=== PATIENT | male | born 1965 | race African-American/Black ===

== ENCOUNTER 2016-11-03 18:46 | Inpatient (IN) | payer MEDICAID ==
[~2016-11-03] VITALS: Ht 193 cm; Wt 104.8 kg
[~2016-11-03 18:46] MED LIST: ALBU18HF2 IH; ASPI-1159 PO; ATOR20TA PO; AZIT500T5 PO; CARV25TA47 PO; CLOP75TA33 PO; FLUT1DIS INH; FURO20TA4 PO; LISI10TA5 PO; MECL-109 PO; METO-396 PO; METR500T4 PO; NO HOME MEDS; PENI500T PO; SPIR25TA4 PO
[2016-11-03] MEDS ORDERED: ONDANSETRON HCL 4MG/2ML VIAL IV STA (19:49)
[2016-11-03] MEDS ORDERED: SODIUM CHLORIDE 0.9% 1,000 ML IV ONE (19:49)
[2016-11-03] MEDS ORDERED: MORPHINE SULFATE 4 MG/ML CPJ (NOT FOR IM USE) IV STA (19:49)
[2016-11-03] MEDS ORDERED: ONDANSETRON HCL 4MG/2ML VIAL IV ONE (20:00)
[2016-11-03 20:30] LABS: BASOPHILS % 0.7 % (0.0-2.0); EOSINOPHILS % 1.2 % (0.0-5.0); HEMATOCRIT. 40.6 % (42.0-52.0); HEMOGLOBIN. 12.7 g/dL (14.0-18.0); LYMPHOCYTES % 17.6 % (20.0-50.0); MEAN CORPUSCULAR HEMOGLOBIN 24.2 pg (28.0-32.0); MEAN CORPUSCULAR VOLUME 77.1 fL (80.0-94.0); MEAN PLATELET VOLUME 9.1 fl (7.4-10.4); MONOCYTES % 7.7 % (2.0-8.0); NEUTROPHILS % 72.8 % (40.0-76.0); PLATELET 190 x1000/uL (130-400); RED BLOOD CELL COUNT 5.26 mill/uL (4.7-6.1); RED CELL DISTRIBUTION WIDTH 21.4 % (11.6-14.6)
[2016-11-03 20:37] LABS: CARBON DIOXIDE 26 mEq/L (21-32); CHLORIDE 109 mEq/L (98-107); INR 1.3; PARTIAL THROMBOPLASTIN TIME 24.6 sec (24.0-34.0); PROTHROMBIN TIME 13.5 sec
[2016-11-03 20:45] LABS: TROPONIN I 0.05 ng/mL (0.00-0.04)
[2016-11-03 21:38] LABS: CLARITY URINE CLEAR (CLEAR); COLOR URINE YELLOW (YELLOW); KETONES URINE NEGATIVE (NEGATIVE); LEUKOCYTE ESTERASE URINE NEGATIVE (NEGATIVE); NITRITE URINE NEGATIVE (NEGATIVE); OCCULT BLOOD URINE NEGATIVE (NEGATIVE); PH URINE 5.5 (4.5-8.0); PROTEIN URINE NEGATIVE (NEGATIVE); SPECIFIC GRAVITY URINE 1.009 (1.005-1.030); UROBILINOGEN URINE 0.2 E.U./dL (0.2-1.0)
[2016-11-03 21:48] LABS: *AMPHETAMINES SCREEN URINE NEGATIVE (NEGATIVE); *BARBITURATES SCREEN URINE NEGATIVE (NEGATIVE); *BENZODIAZEPINES SCREEN URINE NEGATIVE (NEGATIVE); *COCAINE SCREEN URINE NEGATIVE (NEGATIVE); CANNABINOID URINE SCREEN NEGATIVE (NEGATIVE); METHADONE URINE SCREEN NEGATIVE (NEGATIVE); OPIATES URINE SCREEN NEGATIVE (NEGATIVE); PHENCYCLIDINE URINE SCREEN PRESUMTIVE POSITIVE (NEGATIVE)
[2016-11-03] MEDS ORDERED: DOCUSATE SODIUM 100MG CAPSULE PO PRN (22:00)
[2016-11-03] MEDS ORDERED: ACETAMINOPHEN 325MG TABLET PO PRN (22:00)
[2016-11-03] MEDS ORDERED: IPRATROPIUM/ALBUTEROL 0.5-3(2.5)MG/3ML NEB INH PRN (22:00)
[2016-11-03] MEDS ORDERED: MAGNESIUM/ALUMINUM HYDROXIDE/SIMETHICONE 30ML UDC PO PRN (22:00)
[2016-11-03] MEDS ORDERED: ONDANSETRON HCL 4MG/2ML VIAL IV PRN (22:00)
[2016-11-03] MEDS ORDERED: ZOLPIDEM TARTRATE 5MG TABLET PO PRN (22:00)
[2016-11-03] MEDS ORDERED: CLONIDINE 0.1MG TABLET PO PRN (22:00)
[2016-11-03] MEDS ORDERED: DIPHENHYDRAMINE 50MG/ML VIAL IV PRN (22:00)
[2016-11-03] MEDS ORDERED: LORAZEPAM 2MG/ML CPJ IV PRN (22:00)
[2016-11-03] MEDS ORDERED: GUAIFENESIN 200MG/10ML SUGAR FREE UDC PO PRN (22:00)
[2016-11-03] MEDS ORDERED: NITROGLYCERIN 0.4MG TABLET SL SL PRN ×2 (22:00→22:45)
[2016-11-03] MEDS ORDERED: ASPIRIN 325MG EC TABLET PO ONE (22:30)
[2016-11-03] MEDS ORDERED: KETOROLAC 15MG/ML VIAL IV PRN (22:30)
[2016-11-03 22:45] LABS: TOTAL IRON BINDING CAPACITY 407 ug/dL (250-450)
[2016-11-03 22:48] LABS: CREATINE KINASE MB FRACTION 2.6 ng/mL (0.5-3.6); TROPONIN I 0.06 ng/mL (0.00-0.04)
[2016-11-03 23:11] LABS: VITAMIN B12 SERUM 715 pg/mL (211-911)
[2016-11-03 23:13] LABS: FOLIC ACID (FOLATE) SERUM > 20.00 ng/mL (>5.38)
[2016-11-03] MEDS ORDERED: NA PHOS,M-B/NA PHOS,DI-BA ENEMA 118ML PR PRN (23:30)
[2016-11-04] MEDS ORDERED: PANTOPRAZOLE SODIUM 40 MG/VIAL IV SCH (06:00)
[2016-11-04] MEDS: SUCRALFATE 1 G/10 ML UDC PO SCH ×2 (07:40→13:36)
[2016-11-04] MEDS ORDERED: LISINOPRIL 20MG TABLET PO SCH (09:00)
[2016-11-04] MEDS ORDERED: FUROSEMIDE 20MG TABLET PO SCH (09:00)
[2016-11-04] MEDS ORDERED: SPIRONOLACTONE 25MG TABLET PO SCH (09:00)
[2016-11-04 10:12] LABS: CREATINE KINASE MB FRACTION 2.3 ng/mL (0.5-3.6); TROPONIN I 0.04 ng/mL (0.00-0.04)
[2016-11-04 16:00] VITALS: BP 148/88
== END 2016-11-04 17:35 | disposition home or self-care (01) | DRG 241 ==
LOC: ER 18:46 → 7WST 21:55 → EDBEDREQTM 21:57 → EDBEDREQ 21:57 → ENRESERV 11-04 02:43
PROVIDERS: ADMIT Internal Medicine; ATTEND Internal Medicine
DX: K29.70 Gastritis, unspecified, without bleeding (principal); I11.0 Hypertensive heart disease with heart failure; I50.9 Heart failure, unspecified; D64.9 Anemia, unspecified; E11.9 Type 2 diabetes mellitus without complications; F17.210 Nicotine dependence, cigarettes, uncomplicated; I25.2 Old myocardial infarction; I25.10 Atherosclerotic heart disease of native coronary artery without angina pectoris; Z79.51 Long term (current) use of inhaled steroids; Z86.73 Personal history of transient ischemic attack (TIA), and cerebral infarction without residual deficits; Z87.11 Personal history of peptic ulcer disease; Z95.0 Presence of cardiac pacemaker; Z79.2 Long term (current) use of antibiotics; Z79.82 Long term (current) use of aspirin; Z79.899 Other long term (current) drug therapy
CPT/HCPCS: 36415; 71010; 74176; 80053; 80305; 81003; 82550; 82553; 82607; 82746; 82962; 83540; 83550; 83690; 83880; 84484; 85025; 85610; 85730; 93005; 96361; 96374; 96375; 99285; J1885; J2270; J2405; J7030